=== PATIENT | female | born 1995 | race Caucasian/White ===

== ENCOUNTER 2018-06-02 19:24 | Inpatient (IN) | payer MEDICAID, OTHER ==
[2018-06-02] MEDS ORDERED: Ondansetron HCl/PF 4 MG/2 ML Vial ONE (19:45)
[2018-06-02 19:58] LABS: Mean Corpuscular HGB CONC 35.5 g/dL (32.0-36.0); Mean Corpuscular Hemoglobin 32.8 pg (27.0-31.0); Mean Corpuscular Volume 92.4 fL (78.0-98.0); Mean Platelet Volume 6.6 fL (7.4-10.4); Platelet Count 292 thou/uL (130-400); RBC Distribution Width 10.9 % (11.5-14.5); Red Blood Cell (RBC) Count 4.86 mill/uL (4.20-5.40); White Blood Cell (WBC) Count 20.6 thou/uL (4.8-10.8)
[2018-06-02 20:03] LABS: BHCG - Serum Negative (NEGATIVE); Pregs Control Background? CLEAR/WHITE (CLR/WHITE); Pregs Control Bar Appear? YES (CONTROL BAR)
[2018-06-02 20:11] LABS: Bilirubin Negative (Negative); Blood, Urine Small (Negative); Clarity CLOUDY (Clear); Glucose, Urine (Dipstick) Negative (Negative); Leukocyte Large (Negative); Nitrite Negative (Negative); Protein, Urine (Dipstick) 100 mg/dL (Neg-Trace); Specific Gravity, Urine 1.014 (1.002-1.036)
[2018-06-02 20:12] LABS: Pregnancy Test - Urine (BHCG) Negative (Negative); Pregu Control Background? CLEAR/WHITE (CLR/WHITE); Pregu Control Bar Appear? YES (CONTROL BAR); Specific Gravity 1.014 (1.002-1.036)
[2018-06-02 20:13] LABS: Bacteria/HPF 4+ HPF (None Seen); Squamous Epithelial None Seen HPF (0-3)
[2018-06-02 20:14] LABS: Band 13 % (5-11); Lymphocytes 9 % (21-51); MDiff Complete? YES; Monocytes 5 % (0-10); Neutrophil 72 % (42-75); PLT Morphology Comment Appears Adequate; RBC Morphology Normal; Reactive Lymphocytes 1 % (0-10)
[2018-06-02 20:15] LABS: Pathc Cast-AUWi Flag 2.61 (0-2.49)
[2018-06-02 20:19] LABS: ALT (SGPT) 15 U/L (8-55); AST (SGOT) 16 U/L (5-34); Albumin 5.2 g/dL (3.5-5.0); Alkaline Phosphatase 75 U/L (40-150); Anion Gap 18 mmol/L (10-20); BUN (Urea Nitrogen) 8 mg/dL (7.0-18.7); Bilirubin, Total 0.9 mg/dL (0.2-1.2); Calc. Creatinine Clearance 0 mL/min (70-130); Calcium 10.5 mg/dL (7.8-10.44); Carbon Dioxide 22 mmol/L (22-29); Chloride 100 mmol/L (98-107); Estimated GFR-MDRD 78; Globulin 3.7 g/dL (2.4-3.5); Glucose 106 mg/dL (70-105); Lipase 13 U/L (8-78); Potassium 3.7 mmol/L (3.5-5.1); Protein, Total 8.9 g/dL (6.0-8.3); Sodium 136 mmol/L (136-145)
[2018-06-02 20:26] LABS: Hyaline Casts/LPF 4-6 HYALINE CAST LPF (0-3 Hyaline); Other Casts/LPF None Seen LPF (0-3 Hyaline)
[2018-06-02] MEDS ORDERED: cefTRIAXone\\ROCEPHIN 2 GM VIAL ONE (20:47)
[2018-06-02] MEDS ORDERED: Ketorolac Tromethamine 30 MG/ML VIAL ONE (20:52)
[2018-06-02] MEDS ORDERED: Acetaminophen 500 MG TAB ONE (20:58)
--- NOTE | 2018-06-02 21:31 | CT ---
NONCONTRAST CT ABDOMEN AND PELVIS: 06/02/18 HISTORY: Bilateral flank pain, dysuria and inability to void. Vaginal discharge. COMPARISON: None available. FINDINGS: Lack of intravenous contrast does limit sensitivity for evaluation or the parenchymal organs. No renal or ureteral calculi are seen bilaterally. However, there is perinephric stranding seen on th e right with mild calyectasis on the right. The kramer of the proximal right ureter also appear mildly thickened. The findings could be attributable to pyelonephritis in the correct clinical scenario. The left kidney demonstrates a nonenhanced CT appearance. The urinary bladder is decompressed but oth erwise normal in appearance. The lung bases, liver, spleen, pancreas, and bilateral adrenal glands demonstrate a grossly normal no nenhanced CT appearance. A T-shaped intrauterine contraceptive device is noted in place. Adnexal structures demonstrate a norm al nonenhanced CT appearance. The appendix is visualized and normal in caliber. IMPRESSION: 1. Right sided perinephric stranding with suggestion of mild thickening involving the kramer of t he proximal right ureter. There is mild calicectasis on the right without over hydronephrosis. Findin gs could be related to pyelonephritis, and clinical correlation is recommended. 2. Mild scarring involving the right kidney. 3. No renal or ureteral calculi are seen bilaterally. 4. No CT evidence of appendicitis. POS: [facility]
[2018-06-02] MEDS ORDERED: Acetaminophen 325 MG TAB PO PRN (23:39)
[2018-06-02] MEDS ORDERED: Ondansetron ODT 4 MG TAB SL PRN (23:39)
[2018-06-02] MEDS ORDERED: Ondansetron HCl/PF 4 MG/2 ML Vial IVP PRN (23:39)
[2018-06-02] MEDS ORDERED: Sodium Chloride 0.9% 1,000 ML IV SCH (23:39)
[2018-06-03 00:25] VITALS: BMI 25.7
[2018-06-03] MEDS ORDERED: Bisacodyl 5 MG TAB PO PRN (01:17)
[2018-06-03] MEDS ORDERED: Senokot 8.6 MG TAB PO PRN (01:17)
[2018-06-03] MEDS ORDERED: Calcium Carbonate 500 MG ChewTAB PO PRN (01:17)
[2018-06-03] MEDS ORDERED: Mag-Al 1200 mg/1200 mg/30 ML UDCUP PO PRN (01:17)
[2018-06-03] MEDS: Sodium Chloride 0.9% 1,000 ML IV SCH ×3 (01:45→20:12)
[2018-06-03] MEDS ORDERED: diphenhydrAMINE 50 MG/ML VIAL IVP SCH (02:45)
[2018-06-03] MEDS: Ketorolac Tromethamine 30 MG/ML VIAL IVP SCH ×4 (02:45→22:22)
[2018-06-03 02:51] LABS: Anion Gap 18 mmol/L (10-20); BUN (Urea Nitrogen) 7 mg/dL (7.0-18.7); Calc. Creatinine Clearance 118 mL/min (70-130); Calcium 8.2 mg/dL (7.8-10.44); Carbon Dioxide 16 mmol/L (22-29); Chloride 108 mmol/L (98-107); Estimated GFR-MDRD 89; Glucose 105 mg/dL (70-105); Potassium 3.8 mmol/L (3.5-5.1); Sodium 138 mmol/L (136-145)
[2018-06-03] MEDS ORDERED: Vancomycin HCl 1 GM in Premix Bag 1 BAG IVPB SCH (03:00)
[2018-06-03 03:10] LABS: Band 8 % (5-11); Hemoglobin 12.9 g/dL (12.0-16.0); Hypochromia SLIGHT = 6-15 cells (100X) (0-5/hpf); Lymphocytes 13 % (21-51); MDiff Complete? YES; Mean Corpuscular HGB CONC 34.2 g/dL (32.0-36.0); Mean Corpuscular Volume 93.4 fL (78.0-98.0); Mean Platelet Volume 7.9 fL (7.4-10.4); Monocytes 5 % (0-10); Neutrophil 74 % (42-75); PLT Morphology Comment Appears Adequate; Platelet Count 156 thou/uL (130-400); RBC Distribution Width 10.8 % (11.5-14.5); Red Blood Cell (RBC) Count 4.03 mill/uL (4.20-5.40); White Blood Cell (WBC) Count 19.6 thou/uL (4.8-10.8)
[2018-06-03] MEDS: Acetaminophen 650 MG in Premix Bag 1 BAG IVPB PRN ×3 (03:22→23:17)
--- NOTE | 2018-06-03 04:40 | PDOC.EVN ---
Event Note - Event Note Event Note: h&p [id number]
--- NOTE | 2018-06-03 07:53 | HP ---
PRIMARY CARE PHYSICIAN: The patient does not have a PCP. CHIEF COMPLAINT: Abdominal pain. HISTORY OF PRESENT ILLNESS: This is a 23-year-old female with minimal past medical history, who presents with a chief complaint of abdominal pain and urinary retention over the last 2 days. The patient states that she has felt that she probably has urinary tract infection and she had initially gone to clinic on Tuesday for vaginal discharge. It appears that swabs were taken at that point in time for chlamydia and gonorrhea. Since then, the patient has been reporting abdominal pain, mostly on the right, dull, pressure-like, throbbing pain. With the pain, she has experienced nausea with vomiting. At the time of my evaluation, the patient has received ceftriaxone without incident. The patient has also had fever, T-max of 103 despite empiric antibiotics and IV fluids. The patient still feels that she needs to pee and is unable to pee; however, she has been able to actually urinate. Bladder scan does not demonstrate significant residual urine in her bladder postvoid. The patient has also received a dose of vancomycin empirically, which caused her to break out in hives. Vancomycin has subsequently been discontinued and Benadryl given for the patient. REVIEW OF SYSTEMS: As per HPI. Constitutional: Fevers, subjective at home. No significant weight loss or gain. HEENT: No new headache, vision changes, lightheadedness or dizziness. Cardiovascular: No palpitations, chest pain or pressure, left-sided arm numbness or tingling. Respiratory: No dyspnea with exertion. No shortness of breath. No cough or congestion. Gastrointestinal: Nausea as described above, abdominal pain as described above. No issues with diarrhea or constipation. Genitourinary: The patient does report a history of both dysuria and urinary retention. Vaginal discharge as above. Musculoskeletal: No overt myalgias or arthralgias. Remainder of the review of systems otherwise negative. PAST MEDICAL HISTORY: The patient denies any prior surgeries or any known chronic medical issues. HOME MEDICATIONS: The patient denies taking any home medications. ALLERGIES: Allergy to VANCOMYCIN discovered today. Otherwise, no other known drug allergies. FAMILY HISTORY: The patient denies any family history of recurrent urinary tract infections or renal disease that she is aware of. SOCIAL HISTORY: The patient denies any alcohol or illicit drug use. She is a half a pack a day cigarette smoker. Wishes to be FULL CODE at this point in time. PHYSICAL EXAMINATION: VITAL SIGNS: T-max as noted above of 103.0 Fahrenheit, heart rate of 117, blood pressure 98/51, respirations 20, satting 96% on room air. GENERAL: The patient is awake, alert and conversant, does not feel comfortable but also without jesica distress, lying in the hospital bed. HEENT: Normocephalic, atraumatic. Equal ocular motions are intact, slightly dry mucous membranes. Hives scattered throughout her forehead and face, going down through neck, torso and upper abdomen. CARDIOVASCULAR: S1, S2, tachycardic, otherwise no murmurs, rubs or gallops. Pulses 2+ bilateral upper extremities, no pitting pedal edema. RESPIRATORY: Reasonable air movement. No wheezes, rales or rhonchi. No conversational dyspnea. ABDOMEN: Positive bowel sounds, soft, nontender to palpation. MUSCULOSKELETAL: Moving all 4 extremities independently. LABORATORY DATA AND IMAGING: On 06/02/2018, CT of the abdomen and pelvis. Impression: "Right-sided perinephric stranding with suggestion of mild thickening involving the kramer of the proximal right ureter. There is mild caliectasis on the right without overt hydronephrosis. Findings could be related to pyelonephritis, and clinical correlation is recommended. Mild scarring involving the right kidney. No renal or ureteral calculi are seen bilaterally. No CT evidence of appendicitis." ASSESSMENT AND PLAN: A 23-year-old female presenting with a chief complaint of abdominal pain. 1. Abdominal pain likely secondary to acute right-sided pyelonephritis from a urinary tract infection. Of note, the patient is also meeting sepsis criteria. Empiric antibiotics with ceftriaxone. The patient does not have a known history of recurrent urinary tract infection or outpatient antibiotic use to warrant consideration right now for the likelihood of multidrug resistant organisms. Pending urine culture. Pending blood cultures as well. IV fluid hydration, pain control as well. 2. Sepsis. See above empiric antibiotics, IV fluids. The patient is allergic to VANCOMYCIN and has been given benadryl IV with close monitoring. 3. Concern for concomitant possible sexually transmitted infection. Continue to monitor. We will try to obtain results from her previous chlamydia and gonorrhea swabs. 4. Diet: As tolerated. 5. Activity: As tolerated. 6. Deep venous thrombosis prophylaxis with Lovenox. MTDD
[2018-06-03] MEDS ORDERED: Enoxaparin Sodium 30 MG/0.3 ML SYRINGE SC SCH (09:00)
[2018-06-03] MEDS: Docusate 100 MG CAP PO SCH ×2 (09:28→20:15)
[2018-06-03] MEDS: Ondansetron HCl/PF 4 MG/2 ML Vial IVP PRN ×2 (14:34→20:13)
[2018-06-03] MEDS ORDERED: cefTRIAXone\\ROCEPHIN 2 GM in Sodium Chloride 0.9% 100 ML IVPB SCH (21:00)
[2018-06-04 05:20] LABS: #Eosinphils 0.1 thou/uL (0.0-0.7); #Lymphocytes 2.7 thou/uL (1.20-3.40); #Monocytes 1.4 thou/uL (0.11-0.59); #Neutrophils 13.4 thou/uL (1.40-6.50); %Basophils 0.2 % (0.0-1.0); %Eosinophils 0.5 % (0.0-10.0); %Lymphocytes 15.2 % (21.0-51.0); %Monocytes 8.1 % (0.0-10.0); Mean Corpuscular HGB CONC 33.8 g/dL (32.0-36.0); Mean Corpuscular Hemoglobin 32.7 pg (27.0-31.0); Mean Corpuscular Volume 96.8 fL (78.0-98.0); Mean Platelet Volume 6.5 fL (7.4-10.4); Platelet Count 225 thou/uL (130-400); Red Blood Cell (RBC) Count 3.38 mill/uL (4.20-5.40); White Blood Cell (WBC) Count 17.6 thou/uL (4.8-10.8)
[2018-06-04 05:31] LABS: Anion Gap 9 mmol/L (10-20); BUN (Urea Nitrogen) 8 mg/dL (7.0-18.7); Calc. Creatinine Clearance 138 mL/min (70-130); Calcium 7.9 mg/dL (7.8-10.44); Carbon Dioxide 22 mmol/L (22-29); Chloride 109 mmol/L (98-107); Estimated GFR-MDRD Greater than 90; Glucose 94 mg/dL (70-105); Potassium 3.2 mmol/L (3.5-5.1); Sodium 137 mmol/L (136-145)
[2018-06-04] MEDS: Ketorolac Tromethamine 30 MG/ML VIAL IVP SCH ×4 (05:58→23:19)
[2018-06-04] MEDS: Sodium Chloride 0.9% 1,000 ML IV SCH ×3 (10:04→21:11)
[2018-06-04] MEDS: Docusate 100 MG CAP PO SCH ×2 (10:04→21:12)
[2018-06-04] MEDS: Famotidine/PF 20 mg/2ml Vial SLOW IVP PRN (10:07)
[2018-06-04] MEDS: Ondansetron HCl/PF 4 MG/2 ML Vial IVP PRN ×3 (11:11→21:22)
[2018-06-04 14:37] LABS: Vancomycin, Trough Less than 1.1 ug/mL
--- NOTE | 2018-06-04 18:51 | PDOC.PN ---
- Subjective Encounter Start Date: 06/04/18 Encounter Start Time: 14:00 Subjective: f/u for R-sided pyelonephritis on Rocephin. Still with back pain -: and nausea. Wants to go home but not taking consistent po intake -: without nausea. - Objective Resuscitation Status: Resuscitation Status FULL:Full Resuscitation MAR Reviewed: Yes Vital Signs & Weight: Vital Signs (12 hours) Temp Pulse Resp BP Pulse Ox 06/04/18 16:42 98.1 F 57 L 16 140/97 H 97 06/04/18 12:45 98.9 F 60 18 120/72 98 06/04/18 10:01 99.5 F 96 16 119/77 96 06/04/18 08:00 98.2 F 73 16 80 L Weight Weight 149 lb 12.8 oz I&O: 06/03/18 06/04/18 06/05/18 06:59 06:59 06:59 Intake Total 845 1772 Output Total 575 400 Balance 270 1372 Result Diagrams: 06/04/18 04:58 06/04/18 04:58 Additional Labs: Microbiology 06/02/18 19:52 Urine Straight Catheter Urine Culture - Final Escherichia coli 06/02/18 19:48 Venous blood - Right Arm Blood Culture - Preliminary NO GROWTH AT 48 HOURS 06/02/18 19:48 Venous blood - Left Arm Blood Culture - Preliminary NO GROWTH AT 48 HOURS Laboratory Tests 06/02/18 06/03/18 06/03/18 19:48 01:46 01:46 WBC 20.6 H Potassium 3.8 Carbon Dioxide 16 L Lactic Acid 3.0 H 06/03/18 06/03/18 01:46 05:44 WBC 19.6 H Potassium Carbon Dioxide Lactic Acid 1.0 Radiology Reviewed by me: Yes (CT abd - R perinephric stranding consistent with pyelonephritis) EKG Reviewed by me: Yes (Tele -SR in 90's) Phys Exam - Physical Examination tearful, alert HEENT: PERRLA, sclera anicteric, oral pharynx no lesions Neck: no nodes, no JVD, supple, full ROM Respiratory: no wheezing, no rales, no rhonchi, clear to auscultation bilateral S1, S2 Cardiovascular: RRR, no significant murmur, no rub, gallop Gastrointestinal: soft, non-tender, no distention, positive bowel sounds Musculoskeletal: no edema, pulses present Neurological: normal sensation, moves all 4 limbs Psychiatric: A&O x 3 Skin: no rash, normal turgor, cap refill <2 seconds Dx/Plan (1) Pyelonephritis Code(s): N12 - TUBULO-INTERSTITIAL NEPHRITIS, NOT SPCF ACUTE OR CHRONIC Status: Acute Comment: R-sided pyelonephritis, continue Levaquin 750mg IV daily, continue IVF's, Pain control (2) Sepsis Code(s): A41.9 - SEPSIS, UNSPECIFIED ORGANISM Status: Acute Qualifiers: Sepsis type: Escherichia coli Qualified Code(s): A41.51 - Sepsis due to Escherichia coli [E. coli] Comment: Due to pyelonephritis, continue Levaquin as outlined in #1 (3) Nausea & vomiting Code(s): R11.2 - NAUSEA WITH VOMITING, UNSPECIFIED Status: Acute Comment: Zofran and Phenergan prn, IVF's (4) Abdominal pain Code(s): R10.9 - UNSPECIFIED ABDOMINAL PAIN Status: Acute Qualifiers: Abdominal location: right upper quadrant Qualified Code(s): R10.11 - Right upper quadrant pain Comment: Secondary to #1, pain control, mgmt per #1 - Plan continue antibiotics, social science professor, out of bed/ambulate, DVT proph w/SCDs Continue IVF's -: Change abx to Levaquin 750mg IV daily -: D/C Rocephin -: Zofran/Phenergan for nausea/vomiting -: AM lab: BMP, CBC * Transfer to medical floor
--- NOTE | 2018-06-04 19:59 | DIS ---
DATE OF ADMISSION: 06/03/2018 DATE OF DISCHARGE: 06/04/2018 DISCHARGE DIAGNOSES: 1. Acute right-sided pyelonephritis with Escherichia coli. 2. Abdominal/right flank pain secondary to #1. 3. Sepsis secondarily to urinary tract infection/pyelonephritis. 4. Nausea and vomiting secondary to #1. CONSULTATIONS: None. PERTINENT LAB AND X-RAY FINDINGS: Potassium ranged between 3.2-3.8, carbon dioxide ranged between 16 -22. Lactic acid level ranged between 1.0-3.0. CBC showed a white blood cell count ranging between 17.6-20.6. Urine culture dated 06/02/2018 showed greater than 100,000 colonies of E. coli, sensitive to quinolones. Blood cultures x2 dated 06/02/2018 showed no growth to date. CT of the abdomen and pelvis dated 06/02/2018 showed right-sided perinephric stranding consistent with pyelonephritis. HOSPITAL COURSE: The patient was admitted to the medical floor after initially presenting with right -sided abdominal and flank pain with urinary retention. The patient underwent urinalysis concerning for infectious process with associated leukocytosis with initial white blood cell count of 20.6000. The patient was placed on empiric Rocephin as well as aggressive IV fluid hydration. The patient was noted with a T-max of 103 degrees Fahrenheit, meeting sepsis protocol. sepsis criteria. The patien t was continued on pain control with Toradol and morphine sulfate. The patient also received antieme tics with overall improvement in nausea and vomiting. Telemetry monitoring shows sinus mechanism wit h heart rates in the 80s without evidence of acute arrhythmia or dysrhythmia. 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 The patient understan ds risks associated with premature interruption to IV antibiotic therapy in the context of pyelonephr itis; however, will return to hospital if clinically decompensating. Of exam, the patient at the tano e of discharge and discussed followup instructions. The patient verbalized understanding and agreem ent. DISCHARGE MEDICATIONS: 1. Levaquin 750 mg p.o. daily x10 days. 2. Ibuprofen 800 mg p.o. t.i.d. p.r.n. 3. Zofran ODT 8 mg p.o. q.6 hours p.r.n. nausea, vomiting. FOLLOWUP: The patient may follow up with [facility] or [facility] in 5 -7 days. CONDITION ON DISCHARGE: Fair. ACTIVITY: Ad jessie. DIET: Regular. CODE STATUS: FULL. DISPOSITION: Home 06/04/2018.
[2018-06-05] MEDS: Promethazine HCl 25 MG/ML VIAL IM/IV PRN ×2 (02:16→21:57)
[2018-06-05] MEDS: Sodium Chloride 0.9% 1,000 ML IV SCH ×3 (02:18→20:17)
[2018-06-05] MEDS: Ketorolac Tromethamine 30 MG/ML VIAL IVP SCH ×3 (05:08→18:52)
[2018-06-05 05:14] LABS: #Eosinphils 0.1 thou/uL (0.0-0.7); #Lymphocytes 2.1 thou/uL (1.20-3.40); #Monocytes 0.9 thou/uL (0.11-0.59); #Neutrophils 9.9 thou/uL (1.40-6.50); %Basophils 0.2 % (0.0-1.0); %Eosinophils 0.5 % (0.0-10.0); %Lymphocytes 15.9 % (21.0-51.0); %Neutrophils 76.5 % (42.0-75.0); Hemoglobin 10.2 g/dL (12.0-16.0); Mean Corpuscular HGB CONC 34.3 g/dL (32.0-36.0); Mean Corpuscular Hemoglobin 32.5 pg (27.0-31.0); Mean Corpuscular Volume 94.5 fL (78.0-98.0); Mean Platelet Volume 6.9 fL (7.4-10.4); Platelet Count 240 thou/uL (130-400); RBC Distribution Width 10.9 % (11.5-14.5); Red Blood Cell (RBC) Count 3.15 mill/uL (4.20-5.40)
[2018-06-05 05:24] LABS: Anion Gap 9 mmol/L (10-20); BUN (Urea Nitrogen) 7 mg/dL (7.0-18.7); Calc. Creatinine Clearance 134 mL/min (70-130); Calcium 8.2 mg/dL (7.8-10.44); Carbon Dioxide 21 mmol/L (22-29); Chloride 110 mmol/L (98-107); Estimated GFR-MDRD Greater than 90; Glucose 112 mg/dL (70-105); Potassium 3.3 mmol/L (3.5-5.1); Sodium 137 mmol/L (136-145)
[2018-06-05] MEDS: Docusate 100 MG CAP PO SCH ×2 (08:38→20:42)
[2018-06-05] MEDS: Ondansetron HCl/PF 4 MG/2 ML Vial IVP PRN ×3 (08:45→20:12)
--- NOTE | 2018-06-05 18:18 | PDOC.PN ---
- Subjective Encounter Start Date: 06/05/18 Encounter Start Time: 17:35 Subjective: f/u for sepsis due to pyelonephritis on current Levaquin. Feeling better -: today. Less nausea, tolerating po liquids. - Objective Resuscitation Status: Resuscitation Status FULL:Full Resuscitation MAR Reviewed: Yes Vital Signs & Weight: Vital Signs (12 hours) Temp Pulse Resp BP Pulse Ox 06/05/18 08:00 98.8 F 67 16 95 06/05/18 07:37 98.8 F 67 16 126/80 95 Weight Weight 149 lb 12.8 oz I&O: 06/04/18 06/05/18 06/06/18 06:59 06:59 06:59 Intake Total 1772 2220 Output Total 400 Balance 1372 2220 Result Diagrams: 06/05/18 04:18 06/05/18 04:18 Additional Labs: Microbiology 06/02/18 19:52 Urine Straight Catheter Urine Culture - Final Escherichia coli 06/02/18 19:48 Venous blood - Right Arm Blood Culture - Preliminary NO GROWTH AT 48 HOURS 06/02/18 19:48 Venous blood - Left Arm Blood Culture - Preliminary NO GROWTH AT 48 HOURS Laboratory Tests 06/02/18 06/03/18 06/03/18 19:48 01:46 01:46 WBC 20.6 H Potassium 3.8 Carbon Dioxide 16 L Lactic Acid 3.0 H 06/03/18 06/03/18 06/04/18 01:46 05:44 04:58 WBC 19.6 H Potassium 3.2 L Carbon Dioxide Lactic Acid 1.0 06/04/18 04:58 WBC 17.6 H Potassium Carbon Dioxide Lactic Acid Phys Exam - Physical Examination Constitutional: NAD HEENT: PERRLA, sclera anicteric, oral pharynx no lesions Neck: no nodes, no JVD, supple, full ROM Respiratory: no wheezing, no rales, no rhonchi, clear to auscultation bilateral Cardiovascular: RRR, no significant murmur, no rub, gallop R CVA TTP Gastrointestinal: soft, non-tender, no distention, positive bowel sounds Musculoskeletal: no edema, pulses present Neurological: normal sensation, moves all 4 limbs Psychiatric: normal affect, A&O x 3 Skin: no rash, normal turgor, cap refill <2 seconds Dx/Plan (1) Pyelonephritis Code(s): N12 - TUBULO-INTERSTITIAL NEPHRITIS, NOT SPCF ACUTE OR CHRONIC Status: Acute Comment: R-sided pyelonephritis with E. coli, continue Levaquin 750mg IV daily, continue IVF's, Pain control, improving (2) Sepsis Code(s): A41.9 - SEPSIS, UNSPECIFIED ORGANISM Status: Acute Qualifiers: Sepsis type: Escherichia coli Qualified Code(s): A41.51 - Sepsis due to Escherichia coli [E. coli] Comment: Due to pyelonephritis, continue Levaquin as outlined in #1 (3) Nausea & vomiting Code(s): R11.2 - NAUSEA WITH VOMITING, UNSPECIFIED Status: Acute Comment: Zofran and Phenergan prn, IVF's (4) Abdominal pain Code(s): R10.9 - UNSPECIFIED ABDOMINAL PAIN Status: Acute Qualifiers: Abdominal location: right upper quadrant Qualified Code(s): R10.11 - Right upper quadrant pain Comment: Secondary to #1, pain control, mgmt per #1 - Plan continue antibiotics, social worker health services, out of bed/ambulate, DVT proph w/SCDs Stable overall -: Continue Levaquin 750mg IV daily -: Continue IVF's -: Increase po intake -: Toradol 30mg IV q6h * AM lab: BMP, CBC * Likely home in 24h
[2018-06-05] MEDS: Famotidine/PF 20 mg/2ml Vial SLOW IVP PRN (20:39)
[2018-06-06] MEDS: Ketorolac Tromethamine 30 MG/ML VIAL IVP SCH ×4 (00:15→18:09)
[2018-06-06] MEDS: Sodium Chloride 0.9% 1,000 ML IV SCH ×2 (02:20→06:09)
[2018-06-06] MEDS: Promethazine HCl 25 MG/ML VIAL IM/IV PRN ×2 (04:28→13:59)
[2018-06-06 05:31] LABS: Anion Gap 15 mmol/L (10-20); BUN (Urea Nitrogen) 4 mg/dL (7.0-18.7); Calc. Creatinine Clearance 145 mL/min (70-130); Calcium 8.4 mg/dL (7.8-10.44); Carbon Dioxide 18 mmol/L (22-29); Chloride 108 mmol/L (98-107); Estimated GFR-MDRD Greater than 90; Glucose 81 mg/dL (70-105); Sodium 138 mmol/L (136-145)
[2018-06-06 05:56] LABS: Band 10 % (5-11); Eosinophils 1 % (0-10); Hemoglobin 10.9 g/dL (12.0-16.0); Lymphocytes 28 % (21-51); MDiff Complete? YES; Mean Corpuscular HGB CONC 34.4 g/dL (32.0-36.0); Mean Corpuscular Hemoglobin 31.7 pg (27.0-31.0); Mean Corpuscular Volume 92.2 fL (78.0-98.0); Mean Platelet Volume 6.6 fL (7.4-10.4); Monocytes 7 % (0-10); Neutrophil 54 % (42-75); PLT Morphology Comment Appears Adequate; Platelet Count 285 thou/uL (130-400); RBC Distribution Width 10.8 % (11.5-14.5); Red Blood Cell (RBC) Count 3.44 mill/uL (4.20-5.40); White Blood Cell (WBC) Count 9.7 thou/uL (4.8-10.8)
[2018-06-06 07:46] VITALS: BP 143/86; TEMP 98.6
[2018-06-06] MEDS: Docusate 100 MG CAP PO SCH (09:23)
--- NOTE | 2018-06-07 08:53 | ADD-DIS ---
DATE OF ADMISSION: 06/03/2018 DATE OF DISCHARGE: 06/06/2018 Addendum to previous discharge summary dated 06/04/2018. Patient was continually monitored in the hospital due to persistent nausea, vomiting, and inability t o hold down oral antibiotics. The patient continued on Levaquin 750 mg IV until the day of discharge . The patient overall clinically stabilized with antibiotic therapy, IV fluids, and pain control. T he patient tolerating limited oral intake without recurrent nausea or vomiting. Patient has remained afebrile with stable vital signs. I examined the patient at the time of discharge and discussed fol [place] [facility] instructions. The patient overall clinically stable and ready for discharge 06/06/2018. DISCHARGE MEDICATIONS: Please see dictated discharge summary, 06/04/2018, for full details and tanika maya instructions.
== END 2018-06-06 18:53 | disposition home or self-care (01) | DRG 872 ==
LOC: ERS 19:24 → 2SW 23:32 → OBSVTOIN 23:32 → 2NO 06-03 08:41 → T4-A 06-04 20:59
PROVIDERS: ADMIT Internal Medicine; ATTEND Internal Medicine
DX: A41.51 Sepsis due to Escherichia coli [E. coli] (principal); N10 Acute pyelonephritis; R33.9 Retention of urine, unspecified; Z88.1 Allergy status to other antibiotic agents
CPT/HCPCS: 36415; 74176; 80048; 80053; 80202; 81003; 81015; 81025; 83605; 83690; 84703; 85025; 87040; 87077; 87086; 87186; 96360; 96365; 96375; A4216; J0131; J0696; J1200; J1650; J1885; J1956; J2270; J2405; J2550; J3370; J7050; Q0162; S0028